=== PATIENT | male | born 1950 | race Two or more races ===

== ENCOUNTER 2024-07-14 06:25 | Day surgery (SDC) | payer OTHER, SELFPAY ==
[2024-07-14 07:24] LABS: Glucose - Point of Care 110 mg/dl (70-99)
== END 2024-07-14 08:37 | disposition home or self-care (01) ==
LOC: GI 06:25
PROVIDERS: ATTENDING PHYSICIAN Internal Medicine Gastroenterology
DX: D12.3 Benign neoplasm of transverse colon (principal); D12.2 Benign neoplasm of ascending colon; K57.30 Diverticulosis of large intestine without perforation or abscess without bleeding; K64.8 Other hemorrhoids; K64.4 Residual hemorrhoidal skin tags; R19.5 Other fecal abnormalities
CPT/HCPCS: 45385; 88305; 82962

== ENCOUNTER 2024-09-14 08:47 | Day surgery (SDC) | payer OTHER, SELFPAY ==
[2024-09-14 06:55] VITALS: BMI 23.4
[2024-09-14 06:56] VITALS: BMI 23.4
[2024-09-14 06:57] VITALS: BP 168/73
[2024-09-14 07:14] LABS: Glucose - Point of Care 73 mg/dl (70-99)
[2024-09-14 09:45] VITALS: BP 136/81
[2024-09-14 09:53] LABS: Glucose - Point of Care 72 mg/dl (70-99)
[2024-09-14 10:00] VITALS: BP 159/67
[2024-09-14 10:15] VITALS: BP 152/65
== END 2024-09-14 10:27 | disposition home or self-care (01) ==
LOC: GI 08:47
PROVIDERS: ATTENDING PHYSICIAN Internal Medicine Gastroenterology
DX: D12.6 Benign neoplasm of colon, unspecified (principal); K64.0 First degree hemorrhoids; K57.30 Diverticulosis of large intestine without perforation or abscess without bleeding; K63.5 Polyp of colon; D12.2 Benign neoplasm of ascending colon; Z98.890 Other specified postprocedural states
CPT/HCPCS: 45390; 82962; 88305